=== PATIENT | female | born 1985 | race Caucasian/White ===

== ENCOUNTER 2016-07-26 10:38 | Outpatient (CLI) | payer OTHER ==
[~2016-07-26] VITALS: Ht 167.6 cm; Wt 79.3 kg
[~2016-07-26 10:38] MED LIST: ABILIFY10 MG; ADDERALL20 MG PO; ALBUTEROL SULF8.5 GM IH; ALPRAZOLAM1 MG; ALPRAZOLAM1 MG PO; ATARAX,VISTARIL25 MG PO; ATARAX,VISTARIL50 MG PO; ATIVAN0.5 MG PO; CIPRO250 MG PO; FLAGYL500 MG PO; GABAPENTIN100 MG PO; NAPROSYN500 MG PO; PAROXETINE HCL20 MG PO; PERCOCET 5/31 TABLET PO; PROAIR HFA8.5 GM IH; QUETIAPINE FUMA50 MG PO; TORADOL10 MG PO; ULTRAM50 MG PO; VALIUM5 MG PO; VENTOLIN HFA18 GM IH; VICODIN 5-3001 EACH PO; VYVANSE40 MG; WELLBUTRIN XL300 MG; XANAX1 MG PO
[2016-07-26 12:15] VITALS: BP 119/56
[2016-07-26 12:50] LABS: EOSINOPHIL (%) 1.4 % (0-5); EOSINOPHIL COUNT 0.1 K/uL (0-0.3); IMMATURE GRANULOCYTE (%) 0.2 % (0.0-0.7); LYMPHOCYTE COUNT 1.8 K/uL (1.0-2.8); MONOCYTE COUNT 0.6 K/uL (0-0.8)
[2016-07-26 13:11] LABS: ADD MIUA? YES; BILIRUBIN NEGATIVE; BLOOD SMALL; COLOR YELLOW ((YELLOW)); GLUCOSE (STRIP) NEGATIVE; KETONES NEGATIVE; LEUKOCYTES NEGATIVE; NITRITE NEGATIVE; PROTEIN (STRIP) NEGATIVE; SPECIFIC GRAVITY 1.018 (1.000-1.030); UROBILINOGEN 0.2 MG/DL (0.2-1.0)
[2016-07-26 13:38] LABS: HEMATOCRIT 36.4 % (36.0-46.0); MCH 29.8 PG (29.0-34.0); MCHC 32.4 G/DL (30.0-36.0); MCV 91.9 FL (83-99); RBC DIS.WIDTH-CV 13.7 % (11.8-14.6); RBC DIS.WIDTH-SD 45.7 % (39-53); RED BLOOD COUNT 3.96 M/uL (3.80-5.20); WHITE BLOOD COUNT 8.6 K/uL (4.1-10.2)
[2016-07-26 13:43] LABS: AMPHETAMINES QUANT VALUE 0 NG/ML; BARBITUATES QUANT VALUE 0 NG/ML; BENZODIAZEPINES QUANT VALUE 0 NG/ML; BENZODIAZEPINES, URINE SCREEN Negative (200 ng/mL); OPIATES QUANTITATIVE VALUE 0 NG/ML; PHENCYCLIDINE QUANT VALUE 0 NG/ML
[2016-07-26 13:52] LABS: BACTERIA RARE /HPF; EPITHELIAL CELLS RARE /HPF; MUCUS 3+ /LPF; RED BLOOD CELLS 15-20 /HPF (0-5); UCUL ADDED? NO; WHITE BLOOD CELLS 0-5 /HPF (0-5)
[2016-07-26 13:55] LABS: MEAN PLAT.VOLUME 13.3 uM^3 (9.5-12.4); PLAT.SUFFICIENCY ADEQUATE; PLATELET COUNT 144 K/uL (156-360)
[2016-07-26 16:17] VITALS: BP 112/55
== END 2016-07-26 17:30 | disposition home or self-care (01) ==
LOC: LDRP-OP 10:38 → 2WEST 10:39 → LDRP-OP 11-22 15:34
PROVIDERS: Advanced Practice Midwife; Obstetrics & Gynecology
DX: R10.31 Right lower quadrant pain (principal); O99.89 Other specified diseases and conditions complicating pregnancy, childbirth and the puerperium; Z3A.27 27 weeks gestation of pregnancy
CPT/HCPCS: 59025; 76705; 80306 90; 81003; 85025; G0378

== ENCOUNTER 2016-07-29 09:11 | Emergency (ER) | payer OTHER ==
[~2016-07-29] VITALS: Ht 167.6 cm; Wt 76.4 kg
[2016-07-29 10:07] LABS: ADD MIUA? YES; BILIRUBIN NEGATIVE; BLOOD MODERATE; COLOR YELLOW ((YELLOW)); GLUCOSE (STRIP) NEGATIVE; KETONES 80; LEUKOCYTES TRACE; NITRITE NEGATIVE; PROTEIN (STRIP) 100; SPECIFIC GRAVITY 1.021 (1.000-1.030); UROBILINOGEN 0.2 MG/DL (0.2-1.0)
[2016-07-29 10:10] LABS: EOSINOPHIL (%) 0.2 % (0-5); HEMATOCRIT 40.9 % (36.0-46.0); IMMATURE GRANULOCYTE (%) 0.2 % (0.0-0.7); IMMATURE GRANULOCYTE COUNT 0.2 K/uL; LYMPHOCYTE COUNT 1.4 K/uL (1.0-2.8); MCH 30.5 PG (29.0-34.0); MCHC 33.5 G/DL (30.0-36.0); MCV 91.1 FL (83-99); MEAN PLAT.VOLUME 12.8 uM^3 (9.5-12.4); MONOCYTE (%) 4.8 % (3-12); MONOCYTE COUNT 0.6 K/uL (0-0.8); NEUTROPHIL (%) 82.8 % (45-76); NEUTROPHIL COUNT 9.9 K/uL (1.8-6.4); PLATELET COUNT 151 K/uL (156-360); RBC DIS.WIDTH-CV 13.7 % (11.8-14.6); RBC DIS.WIDTH-SD 44.7 % (39-53); RED BLOOD COUNT 4.49 M/uL (3.80-5.20)
[2016-07-29 10:15] LABS: CHLORIDE 108 mEq/L (99-109); POTASSIUM 3.9 mEq/L (3.7-5.4); SODIUM 139 mEq/L (136-147)
[2016-07-29 10:16] LABS: GLUCOSE 80 mg/dL (70-99)
[2016-07-29 10:18] LABS: ANION GAP 11 MEQ/L (2-14)
[2016-07-29 10:20] LABS: GFR ESTIMATE (CALCULATED) > 59 mL/min/
[2016-07-29 10:21] LABS: UREA NITROGEN (BUN) 7 mg/dL (9-23)
[2016-07-29 10:42] LABS: BACTERIA RARE /HPF; EPITHELIAL CELLS 1+ /HPF; MUCUS 4+ /LPF; RED BLOOD CELLS 20-30 /HPF (0-5); WHITE BLOOD CELLS 0-5 /HPF (0-5)
[2016-07-29] MEDS ORDERED: AUGMENTIN875 MG PO (14:28)
[2016-07-29] MEDS ORDERED: ZOFRAN4 MG PO (14:32)
[2016-07-29 14:44] VITALS: BP 106/59
[2016-07-29 15:27] LABS: AMPHETAMINE NEGATIVE (500 ng/mL); BARBITURATES NEGATIVE (200 ng/mL); BENZODIAZEPINES NEGATIVE (150 ng/mL); COCAINE NEGATIVE (150 ng/mL); METHADONE NEGATIVE (200 ng/mL); METHAMPHETAMINE NEGATIVE (500 ng/mL); OPIATES (MORPHINE) NEGATIVE (100 ng/mL); OXYCODONE NEGATIVE (100 ng/mL); PHENCYCLIDINE NEGATIVE (25 ng/mL); PROPOXYPHENE NEGATIVE (300 ng/mL); THC CANNABINOIDS PRESUMPTIVE POSITIVE (50 ng/mL); TRICYCLIC ANTIDEPRESSANTS NEGATIVE (300 ng/mL)
[2016-07-29 15:28] LABS: ADD MEDTOX COMMENT Y; INTERNAL CONTROLS VALID? YES
== END 2016-07-29 14:45 | disposition home or self-care (01) ==
LOC: EME 09:11
PROVIDERS: Emergency Medicine
DX: O23.42 Unspecified infection of urinary tract in pregnancy, second trimester (principal); R10.31 Right lower quadrant pain; O21.9 Vomiting of pregnancy, unspecified; E86.0 Dehydration; Z3A.28 28 weeks gestation of pregnancy; O99.332 Smoking (tobacco) complicating pregnancy, second trimester; J45.909 Unspecified asthma, uncomplicated
CPT/HCPCS: 76770; 80048; 81003; 84999; 85025; 99281; 99285; J0696; J2765; J7030; J7050

== ENCOUNTER 2016-10-24 11:26 | Inpatient (IN) | payer OTHER ==
[2016-10-24] VITALS (22 sets, daily range): BP systolic 97–136; BP diastolic 49–71
[~2016-10-24] VITALS: Ht 167.6 cm; Wt 81.8 kg
[~2016-10-24 11:26] MED LIST changes: +AUGMENTIN875 MG PO; +ZOFRAN4 MG PO
[2016-10-24 13:13] LABS: EOSINOPHIL (%) 0.7 % (0-5); EOSINOPHIL COUNT 0.1 K/uL (0-0.3); HEMATOCRIT 38.7 % (36.0-46.0); IMMATURE GRANULOCYTE (%) 0.5 % (0.0-0.7); IMMATURE GRANULOCYTE COUNT 0.1 K/uL; INSTRUMENT ABS NEUTROPHIL CT 8.1 K/uL; LYMPHOCYTE COUNT 2.1 K/uL (1.0-2.8); MCHC 32.8 G/DL (30.0-36.0); MCV 91.5 FL (83-99); MEAN PLAT.VOLUME 13.4 uM^3 (9.5-12.4); MONOCYTE (%) 4.9 % (3-12); MONOCYTE COUNT 0.5 K/uL (0-0.8); NEUTROPHIL (%) 74.1 % (45-76); NEUTROPHIL COUNT 8.1 K/uL (1.8-6.4); PLATELET COUNT 133 K/uL (156-360); RBC DIS.WIDTH-CV 14.6 % (11.8-14.6); RBC DIS.WIDTH-SD 48.9 % (39-53); RED BLOOD COUNT 4.23 M/uL (3.80-5.20)
[2016-10-24 14:57] LABS: POINT-OF-CARE METER ID UU13113801
[2016-10-24 15:27] LABS: AMPHETAMINE NEGATIVE (500 ng/mL); BARBITURATES NEGATIVE (200 ng/mL); BENZODIAZEPINES NEGATIVE (150 ng/mL); COCAINE NEGATIVE (150 ng/mL); INTERNAL CONTROLS VALID? YES; METHADONE NEGATIVE (200 ng/mL); METHAMPHETAMINE NEGATIVE (500 ng/mL); OPIATES (MORPHINE) NEGATIVE (100 ng/mL); OXYCODONE NEGATIVE (100 ng/mL); PHENCYCLIDINE NEGATIVE (25 ng/mL); PROPOXYPHENE NEGATIVE (300 ng/mL); THC CANNABINOIDS NEGATIVE (50 ng/mL); TRICYCLIC ANTIDEPRESSANTS NEGATIVE (300 ng/mL)
[2016-10-24] MEDS ORDERED: IBUPROFEN800 MG PO (17:04)
[2016-10-25 07:52] VITALS: BP 104/48
[2016-10-25 14:53] VITALS: BP 117/55
[2016-10-25 23:07] VITALS: BP 112/54
[2016-10-26 07:15] VITALS: BP 121/58
[2016-10-26 16:30] VITALS: BP 119/67
== END 2016-10-26 17:10 | disposition home or self-care (01) | DRG 775 ==
LOC: LDRP-OP 11:26 → 2WEST 11:27 → LDRP-OP 11-22 21:42
PROVIDERS: Nurse Practitioner; Obstetrics & Gynecology
PROC: 00HU33Z Insertion of Infusion Device into Spinal Canal, Percutaneous Approach (ICD-10-PCS; principal; 2016-10-24)
PROC: 10E0XZZ Delivery of Products of Conception, External Approach (ICD-10-PCS; principal; 2016-10-24)
PROC: 3E0S3CZ (ICD-10-PCS; principal; 2016-10-24)
PROC: 10907ZC Drainage of Amniotic Fluid, Therapeutic from Products of Conception, Via Natural or Artificial Opening (ICD-10-PCS; principal; 2016-10-24)
DX: O99.324 Drug use complicating childbirth (principal); O99.344 Other mental disorders complicating childbirth; F41.8 Other specified anxiety disorders; O99.334 Smoking (tobacco) complicating childbirth; F17.210 Nicotine dependence, cigarettes, uncomplicated; F11.90 Opioid use, unspecified, uncomplicated; Z3A.40 40 weeks gestation of pregnancy; Z37.0 Single live birth; O69.81X0 Labor and delivery complicated by cord around neck, without compression, not applicable or unspecified
CPT/HCPCS: 82948; 85025; C1755; J0571; J1050; J2795; J3010; J7120